=== PATIENT | female | born 1960 | race Caucasian/White ===

== ENCOUNTER 2020-08-19 16:05 | Observation (INO) | payer BC ==
[~2020-08-19] VITALS: Ht 165.1 cm; Wt 59.0 kg
[~2020-08-19 16:05] MED LIST: DEXAMETHASONE SOD PHOS INJ 4 MG/ML VIAL ONE; FENTANYL CITRATE/PF 100MCG/2 ML INJ ONE; GLYCOPYRROLATE INJ 0.2 MG/ML VIAL ONE; LIDOCAINE HCL 2% LOCAL INJ 5 ML SDV VIAL INJ ONE; MIDAZOLAM HCL 2 MG/2 ML VIAL ONE; NEOSTIGMINE 1 MG/ML 10ML VIAL ONE; ONDANSETRON HCL INJ 2MG/ML 2ML 2 MG/ML VIAL ONE; PHENYLEPHRINE HCL 1% 10 MG/ML VIAL ONE; PROPOFOL IV EMULSION 10 MG/ML 20 ML VIAL ONE; ROCURONIUM BROMIDE 10 MG/ML 5ML VIAL IV ONE; SEVOFLURANE INHAL SOLN 250 ML PEN BTL ONE
[2020-08-19] MEDS ORDERED: SODIUM CHLORIDE 0.9% 1000ML 1,000 ML IV STA (16:20)
[2020-08-19 17:03] LABS: BASOPHILS # (AUTO) 0.1 (0.0-0.1); BASOPHILS % 0.4 % (0.0-1.0); EOSINOPHILS # (AUTO) 0.1 (0.0-0.4); EOSINOPHILS % 0.8 % (0.0-6.0); HEMATOCRIT 37.5 % (34.2-44.1); HEMOGLOBIN 12.5 g/dL (12.0-16.0); LYMPHOCYTES # (AUTO) 2.1 (1.0-3.2); MEAN CORPUSCULAR HEMOGLOBIN 29.2 pg (28-32); MEAN CORPUSCULAR HGB CONC 33.3 g/dL (31-35); MEAN CORPUSCULAR VOLUME 87.6 fL (81-99); MONOCYTES # (AUTO) 0.8 (0.2-0.8); MONOCYTES % 6.8 % (4.4-11.3); NEUTROPHILS # (AUTO) 8.2 (2.1-6.9); NEUTROPHILS % 72.6 % (38.7-80.0); PLATELET COUNT 271 x10e3/uL (140-360); RED BLOOD COUNT 4.28 x10e6/uL (3.6-5.1); RED CELL DISTRIBUTION WIDTH 12.8 % (11.7-14.4)
[2020-08-19 17:08] LABS: INR 0.86; PROTHROMBIN TIME 12.2 seconds (11.9-14.5)
[2020-08-19 17:09] LABS: PARTIAL THROMBOPLASTIN TIME 30.9 seconds (23.8-35.5)
[2020-08-19 17:17] LABS: ALANINE AMINOTRANSFERASE 19 IU/L (0-55); ALBUMIN 4.3 g/dL (3.5-5.0); ALBUMIN/GLOBULIN RATIO 1.4 (0.8-2.0); ALKALINE PHOSPHATASE 69 IU/L (40-150); ANION GAP 11.7 mmol/L (8-16); BLOOD UREA NITROGEN 15 mg/dL (7-26); BUN/CREATININE RATIO 18 (6-25); CALCIUM 9.5 mg/dL (8.4-10.2); CARBON DIOXIDE 26 mmol/L (22-29); CHLORIDE 103 mmol/L (98-107); CREATININE, SERUM 0.83 mg/dL (0.57-1.11); EST GLOMERULAR FILTRATION RATE > 60 ML/MIN (60-); GLUCOSE 99 mg/dL (74-118); POTASSIUM 3.7 mmol/L (3.5-5.1); SODIUM 137 mmol/L (136-145)
[2020-08-19 17:17] LABS: CLARITY,URINE SL CLOUDY (CLEAR); COLOR,URINE YELLOW (YELLOW)
[2020-08-19 17:18] LABS: BILIRUBIN,URINE NEGATIVE (NEGATIVE); KETONES,URINE NEGATIVE (NEGATIVE); LEUKOCYTE ESTERASE ,URINE SMALL (NEGATIVE); NITRITE,URINE NEGATIVE (NEGATIVE); PROTEIN,URINE DIPSTICK NEGATIVE (NEGATIVE); URINE UROBILINOGEN 0.2 mg/dL (0.2 - 1)
[2020-08-19] MEDS ORDERED: IOPAMIDOL 370 MG/ML 200 ML INFUS..BTL INJ ONE (17:36)
[2020-08-19] MEDS ORDERED: SODIUM CHLORIDE 0.9% 50ML 50 ML ONE (17:36)
[2020-08-19 17:42] LABS: BACTERIA,URINE FEW /HPF; RBC,URINE 0-5 /HPF (0-5)
[2020-08-19] MEDS ORDERED: HYDRALAZINE HCL 20 MG/ML VIAL IV PRN (18:30)
[2020-08-19] MEDS ORDERED: ACETAMINOPHEN 325 MG TAB PO PRN (18:30)
[2020-08-19] MEDS ORDERED: ONDANSETRON HCL INJ 2MG/ML 2ML 2 MG/ML VIAL IV PRN ×2 (18:30→18:45)
[2020-08-19] MEDS ORDERED: MORPHINE SULFATE INJ 4 MG/ML INJ 1ML IV PRN (18:30)
[2020-08-19] MEDS ORDERED: SODIUM CHLORIDE 0.9% 1000ML 1,000 ML IV SCH ×2 (18:45)
[2020-08-19] MEDS ORDERED: MORPHINE SULFATE 2 MG/ML SYR 1ML IV PRN (18:45)
--- NOTE | 2020-08-19 18:45 | Diagnostic Imaging Report ---
EXAM: CT Abdomen and Pelvis WITH contrast INDICATION: Right lower quadrant abdominal pain. COMPARISON: None. TECHNIQUE: Abdomen and pelvis were scanned utilizing a multidetector helical scanner from the lung base to the pubic symphysis after administration of IV contrast. Coronal and sagittal reformations were obtained. Routine protocol was performed. Scan was performed when during portal venous phase. IV CONTRAST: 150 mL of Omnipaque 300 ORAL CONTRAST: Water RADIATION DOSE: Total DLP: 206.64 mGy*cm Estimated effective dose: (DLP x 0.015 x size factor) mSv COMPLICATIONS: None FINDINGS: LINES and TUBES: None. LOWER THORAX: 0.6 cm groundglass nodule in the right lower lobe laterally on image 2 series 2. HEPATOBILIARY: No focal hepatic lesions. No biliary ductal dilation. GALLBLADDER: No radio-opaque stones or sludge. No wall thickening. SPLEEN: No splenomegaly. PANCREAS: No focal masses or ductal dilatation. ADRENALS: No adrenal nodules KIDNEYS/URETERS: Kidneys enhance symmetrically. No hydronephrosis. No cystic or solid mass lesions. No stones. Small hiatal hernia. GI TRACT: No abnormal distention, wall thickening, or evidence of bowel obstruction. Appendix is diffusely dilated up to 1.3 cm and thick-walled, associated with surrounding inflammatory changes, consistent with acute appendicitis. No abscess formation at this time. PELVIC ORGANS/BLADDER: 1.1 cm calcified leiomyoma in the anterior uterine body. LYMPH NODES: No lymphadenopathy. VESSELS: There is minimal atherosclerotic disease in the aorta and major arterial branches. PERITONEUM / RETROPERITONEUM: No free air or fluid. BONES: 0.6 cm cortical lesion in the L3 vertebral body suggestive of a bone island. SOFT TISSUES: Unremarkable. IMPRESSION: 1. Acute nonperforated appendicitis. Discussed with Dr. Verduzco from the ER at 6:00 PM on 08/19/2020. 2. 0.6 cm groundglass nodule in the right lower lobe. Recommend follow-up CT chest in 6 months to evaluate stability. Signed by: Dr. Jamie Mariee M.D. on 08/19/2020 6:41 PM
--- NOTE | 2020-08-19 18:45 | Emergency Department Note ---
History of Present Illnes History of Present Illness Chief Complaint: Abdominal Complaints History of Present Illness This is a 60 year old female Patient in from home with complaints of right lower quadrant abdominal pain that started suddenly last night. Denies nausea, vomiting, fever and diarrhea. Denies having pain like this before. Patient states that her pain is 1/10 when at rest or standing but is extreme with palpation over the area. No acute distress noted. Historian: Patient Arrival Mode: Car Negative Notcher Required: No Onset (how long ago): day(s) Location: RLQ ABD Quality: PAIN Radiation: Reports non-radiation Severity: severe Onset quality: gradual Timing of current episode: constant Progression: worsening Chronicity: new Context: Denies recent illness Relieving factors: none Exacerbating factors: none Past Medical/Family History Physician Review I have reviewed the patient's past medical and family history. Any updates have been documented here. Past Medical History Recent Fever: No Clinical Suspicion of Infectio: No New/Unexplained Change in Ment: No Past Medical History: Asthma Past Surgical History: T&A Social History Smoking Cessation: Never Smoker Counseling Performed: No Alcohol Use: None Any Illegal Drug Use: No TB Exposure/Symptoms: No Physically hurt or threatened: No Family History Family history of heart diseas: No Other Any Pre-Existing Lines (PICC,: No Review of Systems Review of Systems Constitutional: Reports no symptoms EENTM: Reports no symptoms Cardiovascular: Reports no symptoms Respiratory: Reports no symptoms Gastrointestinal: Reports as per HPI, Reports abdominal pain Genitourinary: Reports no symptoms Musculoskeletal: Reports no symptoms Integumentary: Reports no symptoms Neurological: Reports no symptoms Psychological: Reports no symptoms Endocrine: Reports no symptoms Hematological/Lymphatic: Reports no symptoms Physical Exam Related Data Allergies: Coded Allergies: Sulfa (Sulfonamide Antibiotics) (Verified Allergy, Unknown, 08/19/20) diphenhydramine (Verified Allergy, Unknown, 08/19/20) Triage Vital Signs Vital Signs Date Time Temp Pulse Resp B/P (MAP) Pulse Ox O2 Delivery O2 Flow Rate FiO2 08/19/20 16:15 99.4 89 16 135/73 99 Room Air Vital signs reviewed: Yes Physical Exam CONSTITUTIONAL Constitutional: Present well-developed, Present well-nourished HENT HENT: Present normocephalic, Present atraumatic, Present oropharynx clear/moist, Present nose normal HENT L/R: Present left ext ear normal, Present right ext ear normal EYES Eyes: Reports PERRL, Reports conjunctivae normal NECK Neck: Present ROM normal PULMONARY Pulmonary: Present effort normal, Present breath sounds normal CARDIOVASCULAR Cardiovascular: Present regular rhythm, Present heart sounds normal, Present capillary refill normal, Present normal rate GASTROINTESTINAL Abdominal: Present soft, Present bowel sounds normal, Present tender (MOD TTP RLQ WITH +GAURDING, NO REBOUND), Present guarding; Absent rebound, Absent left CVA tenderness, Absent right CVA tenderness GENITOURINARY Genitourinary: Present exam deferred SKIN Skin: Present warm, Present dry MUSCULOSKELETAL Musculoskeletal: Present ROM normal NEUROLOGICAL Neurological: Present alert, Present oriented x 3, Present no gross motor or sensory deficits PSYCHOLOGICAL Psychological: Present mood/affect normal, Present judgement normal Results Laboratory Result Diagram: 08/19/20 1620 08/19/20 1620 Laboratory Laboratory Tests Test 08/19/20 17:07 08/19/20 16:20 Urine Color Yellow (YELLOW) Urine Clarity Sl cloudy (CLEAR) Urine pH 5.5 (5 - 7) Urine Specific [place] 1.015 (1.010-1.025) Urine Protein Negative (NEGATIVE) Urine Glucose (UA) Negative (NEGATIVE) Urine Ketones Negative (NEGATIVE) Urine Blood Small (NEGATIVE) Urine Nitrite Negative (NEGATIVE) Urine Bilirubin Negative (NEGATIVE) Urine Urobilinogen 0.2 mg/dL (0.2 - 1) Urine Leukocyte Esterase Small (NEGATIVE) Urine RBC 0-5 /HPF (0-5) Urine WBC 6-10 /HPF (0-5) Urine Epithelial Cells None /LPF (NONE) Urine Bacteria Few /HPF (NONE) White Blood Count 11.24 x10e3/uL (4.8-10.8) Red Blood Count 4.28 x10e6/uL (3.6-5.1) Hemoglobin 12.5 g/dL (12.0-16.0) Hematocrit 37.5 % (34.2-44.1) Mean Corpuscular Volume 87.6 fL (81-99) Mean Corpuscular Hemoglobin 29.2 pg (28-32) Mean Corpuscular Hemoglobin Concent 33.3 g/dL (31-35) Red Cell Distribution Width 12.8 % (11.7-14.4) Platelet Count 271 x10e3/uL (140-360) Neutrophils (%) (Auto) 72.6 % (38.7-80.0) Lymphocytes (%) (Auto) 19.0 % (18.0-39.1) Monocytes (%) (Auto) 6.8 % (4.4-11.3) Eosinophils (%) (Auto) 0.8 % (0.0-6.0) Basophils (%) (Auto) 0.4 % (0.0-1.0) Neutrophils # (Auto) 8.2 (2.1-6.9) Lymphocytes # (Auto) 2.1 (1.0-3.2) Monocytes # (Auto) 0.8 (0.2-0.8) Eosinophils # (Auto) 0.1 (0.0-0.4) Basophils # (Auto) 0.1 (0.0-0.1) Absolute Immature Granulocyte (auto 0.04 x10e3/uL (0-0.1) Prothrombin Time 12.2 seconds (11.9-14.5) Prothromb Time International Ratio 0.86 Activated Partial Thromboplast Time 30.9 seconds (23.8-35.5) Sodium Level 137 mmol/L (136-145) Potassium Level 3.7 mmol/L (3.5-5.1) Chloride Level 103 mmol/L (98-107) Carbon Dioxide Level 26 mmol/L (22-29) Anion Gap 11.7 mmol/L (8-16) Blood Urea Nitrogen 15 mg/dL (7-26) Creatinine 0.83 mg/dL (0.57-1.11) Estimat Glomerular Filtration Rate > 60 ML/MIN (60-) BUN/Creatinine Ratio 18 (6-25) Glucose Level 99 mg/dL (74-118) Calcium Level 9.5 mg/dL (8.4-10.2) Magnesium Level 2.0 MG/DL (1.3-2.1) Total Bilirubin 0.4 mg/dL (0.2-1.2) Aspartate Amino Transf (AST/SGOT) 21 IU/L (5-34) Alanine Aminotransferase (ALT/SGPT) 19 IU/L (0-55) Alkaline Phosphatase 69 IU/L (40-150) Total Protein 7.4 g/dL (6.5-8.1) Albumin 4.3 g/dL (3.5-5.0) Globulin 3.1 g/dL (2.3-3.5) Albumin/Globulin Ratio 1.4 (0.8-2.0) Lab results reviewed: Yes Imaging Imaging results reviewed: Yes Assessment & Plan Medical Decision Making [facility] RLQ ABD PAIN - CBC, CHEM, UA, CT ABD/PELVIS - EVAL FOR APPENDICITIS, UTI, PYELO, URETEROLITHIASIS Reassessment Reassessment ADMIT TO DR SKYLER SALAS CONSULTED AND HERE SEEING PT Assessment & Plan Final Impression: (1) Appendicitis Depart Disposition: ADMITTED Last Vital Signs Date Time Temp Pulse Resp B/P (MAP) Pulse Ox O2 Delivery O2 Flow Rate FiO2 08/19/20 16:15 99.4 89 16 135/73 99 Room Air Medications in the ED Sodium Chloride 1,000 ml @ 0 mls/hr Q0M STAT IV Last administered on 08/19/20at 18:37; Admin Dose 125 MLS/HR; Start 08/19/20 at 16:20; Stop 08/19/20 at 16:24; Status DC Sodium Chloride 50 ml @ ud STK-MED ONCE .ROUTE ; Start 08/19/20 at 17:36; Stop 08/19/20 at 17:30; Status DC Iopamidol 74,000 mg STK-MED ONCE INJ ; Start 08/19/20 at 17:36; Stop 08/19/20 at 17:30; Status DC Hydralazine HCl 10 mg Q4H PRN IV HIGH BLOOD PRESSURE; Start 08/19/20 at 18:30; Stop 09/18/20 at 18:29 Piperacillin Sod/ Tazobactam Sod 50 ml @ 50 mls/hr Q8H IV ; Start 08/19/20 at 22:00; Stop 08/26/20 at 21:59 Ondansetron HCl 4 mg Q4H PRN IV NAUSEA AND VOMITING; Start 08/19/20 at 18:30; Stop 09/18/20 at 18:29 Acetaminophen 650 mg Q6H PRN PO Mild Pain (1-3) or Fever>100.8; Start 08/19/20 at 18:30; Stop 09/18/20 at 18:29 Morphine Sulfate 4 mg Q6H PRN IV SEVERE PAIN (7-10); Start 08/19/20 at 18:30; Stop 08/26/20 at 18:29 Sodium Chloride 1,000 ml @ 75 mls/hr [id number] IV ; Start 08/19/20 at 18:45; Stop 09/18/20 at 18:44 WILTON BRADLEY MD Aug 19, 2020 18:45
--- OUTSIDE RECORDS SUMMARY | 2020-08-19 19:42 | XMS REPORT | Continuity of Care Document ---
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 Allergies, Adverse Reactions, Alerts This patient has no known allergies or adverse reactions. Medications This patient has no known medications. Procedures This patient has no known procedures. Results Test Description Test Time Test Comments Results Result Comments Source CT ABDOMEN/PELVIS W 2020-08-19 17:44:00 [facility] CENTERName: ESTEBAN RODRIGUEZ : 1960 Sex: F [facility] [address] [place] [address] Patient Name: ESTEBAN RODRIGUEZ MR #: [id number] : 1960 Age/Sex: 60/F Req #: [id number] Adm Physician: Ordered by: WILTON BRADLEY MD Report #: [id number] Location: ER Room/Bed: Procedure: [id number] CT/CT ABDOMEN/PELVIS W Exam Date: 08/19/20 Exam Time: 1728 REPORT STATUS: Signed EXAM: CT Abdomen and Pelvis WITH contrast INDICATION: Right lower quadrant abdominal pain. COMPARISON: None. TECHNIQUE: Abdomen and pelvis were scanned utilizing a multidetector helical scanner from the lung base to the pubic symphysis after administration of IV contrast. Coronal and sagittal reformations were obtained. Routine protocol was performed. Scan was performed when during portal venous phase. IV CONTRAST: 150 mL of Omnipaque 300 ORAL CONTRAST: Water RADIATION DOSE: Total DLP: 206.64 mGy*cm Estimated effective dose: (DLP x 0.015 x size factor) mSv COMPLI CATIONS: None FINDINGS: LINES and TUBES: None. LOWER THORAX: 0.6 cm groundglass nodule in the right lower lobe laterally on image 2 series 2. HEPATOBILIARY: No focal hepatic lesions. No biliary ductal dilation. GALLBLADDER: No radio-opaque stones or sludge. No wall thickening. SPLEEN: No splenomegaly. PANCREAS: No focal masses or ductal dilatation. ADRENALS: No adrenal nodules KIDNEYS/URETERS: Kidneys enhance symmetrically. No hydronephrosis. No cystic or solid mass lesions. No stones. Small hiatal hernia. GI TRACT: No abnormal distention, wall thickening, or evidence of bowel obstruction. Appendix is diffusely dilated up to 1.3 cm and thick-walled, associated with surrounding inflammatory changes, consistent with acute appendicitis. No abscess formation at this time. PELVIC ORGANS/BLADDER: 1.1 cm calcified leiomyoma in the anterior uterine body. LYMPH NODES: No lymphadenopathy. VESSELS: There is minimal atherosclerotic disease in the aorta and major arterial branches. PERITONEUM / RETROPERITONEUM: No free air or fluid. BONES: 0.6 cm cortical lesion in the L3 vertebral body suggestive of a bone island. SOFT TISSUES: Unremarkable. IMPRESSION: 1. Acute nonperforated appendicitis. Discussed with Dr. Bradley from the ER at 6:00 PM on 08/19/2020. 2. 0.6 cm groundglass nodule in the right lower lobe. Recommend follow-up CT chest in 6 months to evaluate stability. Signed by: Dr. Jamie Ryder M.D. on 08/19/2020 6:41 PM Dictated By: BIBI RYDER MD, MD 40 Transcribed By: YAW on 08/19/201840 COPY TO: WILTON BRADLEY MD
[2020-08-19 19:45] VITALS: BP 122/61
--- NOTE | 2020-08-19 20:35 | NUR ---
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 Patient left unit.
[2020-08-19] MEDS ORDERED: BUPIVACAINE 0.25% 30ML SDV ONE (20:48)
[2020-08-19] MEDS ORDERED: VITAMIN C500 M6 PO (21:03)
[2020-08-19] MEDS ORDERED: FLONASE ALLERG9.9 ML (21:03)
[2020-08-19] MEDS ORDERED: VITAMIN E400 UNI1 PO (21:03)
[2020-08-19] MEDS ORDERED: astelin (21:03)
[2020-08-19] MEDS ORDERED: PULMICORT1 MG/2 ML IH (21:03)
[2020-08-19] MEDS ORDERED: LEVALBUTEROL IH (21:03)
[2020-08-19] MEDS ORDERED: EXCEDRIN MIGRA1 EAC3 PO (21:03)
[2020-08-19] MEDS ORDERED: OMEGA-31000 MG PO (21:03)
[2020-08-19] MEDS ORDERED: MULTIVITAMINS1 EAC7 PO (21:03)
[2020-08-19] MEDS ORDERED: VITAMIN D3250 MC1 PO (21:03)
[2020-08-19] MEDS ORDERED: INFLUENZA VIRUS VAC SPLIT INJ 0.5 ML SYR IM SCH (21:57)
[2020-08-19] MEDS ORDERED: SUGAMMADEX SODIUM 200 MG/2 ML VIAL IV ONE (22:13)
--- NOTE | 2020-08-19 22:42 | NUR ---
Received report from Sahil in post op. Patient spouse updated in room.
--- NOTE | 2020-08-19 23:11 | NUR ---
Patient arrived to unit via stretcher. 3 lap site CDI, IV left AC, RA. No c/o pain. Ice chips given.
[2020-08-19] MEDS: PIPER-TAZ 3.375 GM 50 ML IV SCH (23:15)
[2020-08-19 23:47] VITALS: BP 113/72
--- NOTE | 2020-08-19 23:54 | Consultation ---
DATE OF CONSULTATION: 08/19/2020 CHIEF COMPLAINT: Abdominal pain. HISTORY OF PRESENT ILLNESS: The patient is a 60-year-old female with 1-day history of pain in the lower abdomen in the right side with some nausea. No vomiting. No fever, chills, or diarrhea. PAST MEDICAL HISTORY: Negative for chronic illness. PAST SURGICAL HISTORY: Positive for tonsillectomy. ALLERGIES: THE PATIENT IS ALLERGIC TO SULFA. SOCIAL HABITS: She does not smoke or drink. REVIEW OF SYSTEMS: As mentioned. No chest pain, shortness of breath, cough, or fevers. PHYSICAL EXAMINATION: VITAL SIGNS: Stable. She had a low-grade temperature of 99.4. GENERAL: She is awake and alert, in moderate discomfort HEENT: Sclerae anicteric. NECK: Supple. LUNGS: Clear. HEART: Regular rate and rhythm. ABDOMEN: Soft with guarding tenderness and rebound in the right lower quadrant. LABORATORY DATA: White cell count is 11. CT scan showed inflamed appendix. ASSESSMENT: Acute appendicitis. PLAN: Laparoscopic appendectomy. Attendant risks discussed. Arun Mata MD DNHebert/MODL /[id number]
--- NOTE | 2020-08-20 02:29 | Operative Report ---
DATE OF PROCEDURE: 08/19/2020 SURGEON: Arun Mata MD PREOPERATIVE DIAGNOSIS: Appendicitis. POSTOPERATIVE DIAGNOSIS: Appendicitis. OPERATIVE PROCEDURE: Laparoscopic appendectomy. ANESTHESIA: General, Dr. . INDICATION FOR SURGERY: The patient is a 60-year-old female with one-day history of abdominal pain in the right lower quadrant with CT scan showing appendicitis. She consented for laparoscopic appendectomy. Attendant risks discussed. PROCEDURE FINDINGS: Acute appendicitis. DESCRIPTION OF PROCEDURE: The patient was brought to the OR, intubated. The abdomen was prepped and draped in sterile fashion. Infraumbilical incision was made and an 11 mm port inserted. Insufflation began under direct vision. Other ports sites placed in the right upper quadrant in the suprapubic region. Appendix noted to be grossly inflamed and not perforated. The mesoappendix controlled with the LigaSure down to the neck, which was then controlled with an Endoloop tie of 0 PDS. The appendix was amputated distal to the thigh with the ligature and appendix was placed in an Endopouch and retrieved out of the peritoneal cavity. Operative field irrigated. Hemostasis achieved. Ports removed under direct vision. Fascia closure with 0 Vicryl. Skin was closed with subcuticular stitch. The patient was extubated and transported to recovery room. BLOOD LOSS: 3 mL. Arun Mata MD DNL/CHELSEYL /[id number]
--- NOTE | 2020-08-20 03:30 | NUR ---
Patient up and ambulating in brown, tolerating well.
--- NOTE | 2020-08-20 03:45 | NUR ---
Patient requesting jello, hajao given. Patient tolerating.
[2020-08-20 04:00] VITALS: BP 103/58
[2020-08-20 04:57] LABS: BASOPHILS % 0.2 % (0.0-1.0); EOSINOPHILS % 0.1 % (0.0-6.0); HEMATOCRIT 33.4 % (34.2-44.1); HEMOGLOBIN 11.2 g/dL (12.0-16.0); LYMPHOCYTES # (AUTO) 0.5 (1.0-3.2); LYMPHOCYTES % 5.8 % (18.0-39.1); MEAN CORPUSCULAR HEMOGLOBIN 30.3 pg (28-32); MEAN CORPUSCULAR HGB CONC 33.5 g/dL (31-35); MEAN CORPUSCULAR VOLUME 90.3 fL (81-99); MONOCYTES # (AUTO) 0.1 (0.2-0.8); MONOCYTES % 1.7 % (4.4-11.3); NEUTROPHILS # (AUTO) 7.7 (2.1-6.9); NEUTROPHILS % 91.8 % (38.7-80.0); PLATELET COUNT 209 x10e3/uL (140-360); RED CELL DISTRIBUTION WIDTH 12.6 % (11.7-14.4)
--- NOTE | 2020-08-20 05:00 | NUR ---
Patient requesting jello and crackers, tolerating.
--- NOTE | 2020-08-20 05:00 | NUR ---
Patient up and ambulating in brown, tolerating well.
[2020-08-20 05:14] LABS: ALANINE AMINOTRANSFERASE 16 IU/L (0-55); ALBUMIN 3.5 g/dL (3.5-5.0); ALBUMIN/GLOBULIN RATIO 1.3 (0.8-2.0); ALKALINE PHOSPHATASE 54 IU/L (40-150); BLOOD UREA NITROGEN 13 mg/dL (7-26); BUN/CREATININE RATIO 17 (6-25); CALCIUM 8.5 mg/dL (8.4-10.2); CARBON DIOXIDE 26 mmol/L (22-29); CHLORIDE 106 mmol/L (98-107); CREATININE, SERUM 0.78 mg/dL (0.57-1.11); EST GLOMERULAR FILTRATION RATE > 60 ML/MIN (60-); GLUCOSE 152 mg/dL (74-118); SODIUM 139 mmol/L (136-145)
[2020-08-20] MEDS: PIPER-TAZ 3.375 GM 50 ML IV SCH (06:27)
--- NOTE | 2020-08-20 07:00 | NUR ---
RECEIVED BEDSIDE SHIFT REPORT FROM OFF GOING NIGHT NURSE. PATIENT IN STABLE CONDITION, NO S/S OF DISTRESS NOTED. IV FLUIDS INFUSING, SITE ASYMPTOMATIC AND PATENT, TRANSPARENT DRESSING C/D/I. SCDs APPLIED. TELEMETRY APPLIED. DRESSING TO THE ABDOMEN C/D/I. BED IN LOWEST POSITION AND LOCKED. CALL LIGHT WITHIN REACH.
--- NOTE | 2020-08-20 07:10 | NUR ---
When making walking rounds and bedside report, patient in bed with breakfast from cafeteria. Patient reports tolerating and requesting regular diet.
--- NOTE | 2020-08-20 07:11 | NUR ---
Bedside report and walking rounds completed with oncoming nurse. Patient in bed with spouse at bedside with call light within reach. No issues or concerns noted. POC updated with patient.
[2020-08-20 08:05] VITALS: BP 97/60
[2020-08-20 08:59] VITALS: BP 97/60
[2020-08-20] MEDS ORDERED: ONDANSETRON HCL 4 MG ORAL DISINTEGRATING TAB PO PRN (11:30)
[2020-08-20] MEDS ORDERED: INFLUENZA VIRUS VAC SPLIT INJ 0.5 ML SYR IM SCH (12:00)
--- NOTE | 2020-08-20 12:37 | NUR ---
PATIENT DISCHARGED HOME. PATIENT OFF THE UNIT @ 1235 VIA WHEELCHAIR ACCOMPANIED BY PCT TO THE LOBBY. PATIENT IN STABLE CONDITION, NO S/S OF DISTRESS NOTED. NO PAIN VOICED. IV ACCESS REMOVED WITH TIP INTACT. ABDOMINAL DRESSING C/D/I, NO BLEEDING NOTED. ALL PERSONAL BELONGINGS TAKEN WITH THE PATIENT. DISCHARGE TEACHING AND INSTRUCTION GIVEN TO THE PATIENT. PATIENT VERBALIZED UNDERSTANDING. DISCHARGE PAPERWORK GIVEN TO THE PATIENT.
--- NOTE | 2020-08-20 20:08 | History and Physical ---
PRIMARY CARE PHYSICIAN: Dr. Hernandez at [facility]. CHIEF COMPLAINT: Right lower quadrant abdominal pain. HISTORY OF PRESENT ILLNESS: This is a 60-year-old female with past medical history of allergic asthma, who presented to her PCP at [facility] with abdominal pain that started a day ago. She reports the pain was constant, she takes Tylenol/aspirin [id number] to help with the pain, which did not improve. She denies any chest pain, shortness of breath, fever, chills, dysuria, hematuria, or change in her bowel habits. She was sent to the ER for evaluation of acute appendicitis. In the ER, CT abdomen and pelvis showed acute nonperforated appendicitis and 0.6 cm ground-glass nodule in the right lower lobe and recommend CT in six months. PAST MEDICAL HISTORY: Allergic asthma. PAST SURGICAL HISTORY: She reports tonsillectomy. FAMILY MEDICAL HISTORY: She reports mother had Alzheimer's and CHF. Father had diabetes and atrial fibrillation at an old age. SOCIAL HISTORY: She denies any tobacco, alcohol or illicit drug use. 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 ALLERGIES: SHE IS ALLERGIC TO ZOCOR AND BENADRYL. REVIEW OF SYSTEMS: Twelve systems reviewed and negative except as reported in HPI. PHYSICAL EXAMINATION: VITAL SIGNS: Temperature 97.8, pulse is 64, respirations 17, blood pressure 103/58, and pulse ox is 98% on room air. GENERAL: No acute distress. HEENT: Normocephalic, atraumatic. NECK: Supple. LUNGS: Clear to auscultation. CARDIOVASCULAR: Regular rate and rhythm. GI: Soft and nontender. NEURO: Alert, awake, and oriented x3. MUSCULOSKELETAL: Moves all extremities. SKIN: Dry. PSYCH: Calm. LABORATORY DATA: WBC 11.24, hemoglobin 12.5, hematocrit 37.5, platelet 271,000. Sodium 137, potassium 3.7, BUN 15 and creatinine 0.83, estimated GFR is greater than 60, glucose 99, , PT 12.2, INR 0.86, APTT 30.9. UA was negative. Coronavirus PCR not detected. CT abdomen and pelvis showed acute nonperforated appendicitis and 0.6 cm ground-glass nodule in the right lower lobe. Recommend CT chest in six months to evaluate stability. IMPRESSION AND PLAN: 1. Acute appendicitis. She was started on IV fluids, IV antibiotics and pain management as needed. Dr. Mata was consulted and underwent lap appendectomy overnight. 2. Mild leukocytosis. Likely reactive. Continue Zosyn. 3. Allergic asthma. Nebs p.r.n. 4. Gastrointestinal and deep vein thrombosis prophylaxis. No chemical anticoagulation due to surgery. Dictated by CHRISTIAN Sosa Radha Acosta MD MY/MODL /[id number]
--- NOTE | 2020-08-20 20:38 | Discharge Summary ---
PCP: Dr. Hernandez at [facility]. FINAL DISCHARGE DIAGNOSES: 1. Acute cholecystitis, status post laparoscopic appendectomy. 2. Mild leukocytosis. 3. Allergic asthma. FORESTRY ENGINEER: Dr. Mata with Surgical team. PROCEDURES: Status post laparoscopic appendectomy. HISTORY: Per HPI. HOSPITAL COURSE: This is a 60-year-old female, who presented with abdominal pain. CT abdomen and pelvis showed acute nonperforated appendicitis. She was started on IV fluids, IV antibiotics, and Surgical team was consulted. She underwent laparoscopic appendectomy and monitored overnight. This morning, WBC is improved. She remains afebrile, vital signs stable. Tolerating diet, denies any abdominal pain. We will discharge home to follow up with Dr. Mata in 1 to 2 weeks. PHYSICAL EXAMINATION: VITAL SIGNS: Temperature is 98.6, pulse is 84, respirations 20, blood pressure 97/60, pulse ox is 99% on room air. GENERAL: No acute distress. HEENT: Normocephalic and atraumatic. NECK: Supple. CARDIOVASCULAR: Regular rate and rhythm. GI: Soft, mild tenderness. Surgical site intact. MUSCULOSKELETAL: Moves all extremities. PSYCH: Calm. CONDITION AT DISCHARGE: Stable and improved. DISCHARGE MEDICATIONS: Please see medication reconciliation list. FOLLOWUP: Follow up with PCP and Dr. Mata next week. She is also to follow up in [address] chest as there was an incidental finding of 0.6 cm nodule in the right lower lobe. A repeat CT in 6 months. TIME SPENT: Total discharge time is 32 minutes. Dictated by CHRISTIAN Sosa Radha Acosta MD MY/MODL /[id number] cc: Kourtney Hernandez MD
== END 2020-08-20 12:35 | disposition home or self-care (01) ==
LOC: ER 18:11 → ERHOLD 19:38 → INTOOBSV 19:38 → MED/SURG 19:45
PROVIDERS: ADMIT Internal Medicine; ATTEND Internal Medicine
DX: K35.80 Unspecified acute appendicitis (principal); J45.909 Unspecified asthma, uncomplicated; J30.2 Other seasonal allergic rhinitis; Z20.828 Contact with and (suspected) exposure to other viral communicable diseases; Z88.2 Allergy status to sulfonamides; Z88.8 Allergy status to other drugs, medicaments and biological substances
CPT/HCPCS: 36415 ×2; 44970; 74177; 80053 ×2; 81001; 83735; 85025 ×2; 85610; 85730; 87086; 88304; 99284; G0378 ×2; J2543 ×2; J7030; Q9967; U0002; J1100; J2001; J2250; J2370; J2405; J2710; J3010